=== PATIENT | male | born 1975 ===

== ENCOUNTER 2017-08-16 00:14 | Emergency (ER) | payer MEDICAID ==
[2017-08-16 01:00] VITALS: BP 119/65; PULSE 77; RESP 17; TEMP 98.2; O2SAT 98
[2017-08-16] MEDS ORDERED: Tobramycin 0.3% OPH OINT OU STA (01:38)
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
== END 2017-08-16 02:53 | disposition home or self-care (01) ==
LOC: H.ER 00:14
DX: T26.10XA Burn of cornea and conjunctival sac, unspecified eye, initial encounter (principal)